=== PATIENT | male | born 1995 | race Caucasian/White ===

== ENCOUNTER 2017-11-14 17:42 | Emergency (ER) | payer OTHER ==
[~2017-11-14] VITALS: Ht 190.5 cm; Wt 81.7 kg
[2017-11-14] MEDS ORDERED: TRAMADOL 50 MG50 MG PO (18:29)
[2017-11-14] MEDS ORDERED: IBUPROFEN 800800 M1 PO (18:29)
[2017-11-14 18:49] VITALS: BP 102/47
== END 2017-11-14 18:51 | disposition home or self-care (01) ==
LOC: M.ERS 17:42
DX: S93.491A Sprain of other ligament of right ankle, initial encounter (principal); W18.49XA Other slipping, tripping and stumbling without falling, initial encounter; Y93.67 Activity, basketball; Y92.89 Other specified places as the place of occurrence of the external cause; Y99.8 Other external cause status